=== PATIENT | male | born 1960 | race Caucasian/White ===

== ENCOUNTER → 2021-09-15 | Outpatient (CLI) | payer OTHER ==
[~2021-09-15] MED LIST: MELOXICAM15 MG PO
== END ==
LOC: M.LAB 10:58
PROVIDERS: ATTEND Podiatrist Foot & Ankle Surgery
DX: Z01.812 Encounter for preprocedural laboratory examination (principal); Z20.822 Contact with and (suspected) exposure to COVID-19

== ENCOUNTER 2021-09-16 04:16 | Inpatient (IN) | payer OTHER ==
[~2021-09-16] VITALS: Ht 182.9 cm; Wt 113.4 kg
[2021-09-16 07:20] LABS: HEMATOCRIT 39.1 % (42.0-52.0); HEMOGLOBIN 13.6 gm/dL (14.0-18.0); MCHC 34.9 g/dL (28.0-37.0); MPV 8.5 fl. (7.2-11.1); RBC 4.54 mil/uL (4.50-6.00); WBC 6.9 thou/uL (4.0-11.0)
[2021-09-16 07:24] LABS: CALCIUM 8.4 mg/dL (8.5-10.1); CREATININE 0.9 mg/dL (0.6-1.3); POTASSIUM 3.8 mmol/L (3.5-5.1)
--- NOTE | 2021-09-16 12:14 | NUR ---
PT IS 60 Y/O MALE HOLDING IN PACU FOR MED/SURG BED S/P LEFT TOTAL ANKLE REPLACEMENT. PT BEING CARED FOR BY KEVIN TAVARES. AT BEDSIDE. COMPLETE ADMISSION HX/ASSESSMENT COMPLETED. PT IS DROWSY BUT AXOX4. ON 2L PER NC. PT'S LEFT ANKLE ELEVATED ON MULTIPLE PILLOWS. ICE PACKS APPLIED WELL TO HELP W/ SWELLING/PAIN. PT REPORTS RELIEF FROM LEFT ANKLE PAIN AFTER FENTANYL, TORADOL AND DILAUDID (PER POST OP RECOVERY ORDERS) ADMINISTRATION. PT IS FULL WEIGHT BEARING ON THE RIGHT LEG. NO WEIGHT BEARING ON THE LEFT ANKLE/FOOT. PT WILL FOLLOW UP WITH DR. HOGAN IN THE CLINIC NEXT SUNDAY (APPT ALREADY SCHEDULED). GOALS THIS SHIFT: PAIN MANAGEMENT, ELEVATION, ICE THERAPY, AND MONITOR OXYGENATION STATUS.
[2021-09-16 13:45] VITALS: BP 154/73
--- NOTE | 2021-09-16 14:29 | NUR ---
At 1345 patient transferred from pacu to room 228. patient is awake and alert. Left lower extremity elevated on 3 pillows with ice to lower extremity. pain 1/10. Toes pink and warm.
[2021-09-16 16:00] VITALS: BP 117/67
[2021-09-16 20:00] VITALS: BP 124/61
[2021-09-17 01:22] VITALS: BP 103/52
[2021-09-17 05:45] VITALS: BP 112/60
[2021-09-17 08:48] VITALS: BP 111/64
[2021-09-17 09:44] LABS: ABSOLUTE BASOPHILS 0.1 thou/uL (0.0-0.2); ABSOLUTE EOSINOPHILS 0.1 thou/uL (0.0-0.7); ABSOLUTE LYMPHOCYTES 1.9 thou/uL (0.8-5.3); ABSOLUTE MONOCYTES 0.7 thou/uL (0.0-1.2); BASOPHILS 0.6 %; EOSINOPHILS 0.8 %; HEMATOCRIT 35.7 % (42.0-52.0); HEMOGLOBIN 12.5 gm/dL (14.0-18.0); LYMPHOCYTES 21.4 %; MCH 30.3 pg (26.0-34.0); MCV 86.7 fL (80.0-100.0); MONOCYTES 8.6 %; MPV 8.5 fl. (7.2-11.1); NUCLEATED RBCS 0 /100WBC; PLATELET COUNT* 262 thou/uL (150-400); POLYS 68.6 %; RBC 4.12 mil/uL (4.50-6.00); RDW-CV 13.5 % (10.5-14.5); WBC 8.7 thou/uL (4.0-11.0)
[2021-09-17 09:53] LABS: ALBUMIN 3.1 g/dL (3.4-5.0); CALCIUM 7.7 mg/dL (8.5-10.1); CREATININE 1.1 mg/dL (0.6-1.3); MAGNESIUM 1.9 mg/dL (1.8-2.4); PHOSPHORUS* 2.4 mg/dL (2.5-4.9); POTASSIUM 3.4 mmol/L (3.5-5.1); TOTAL BILIRUBIN 0.8 mg/dL (<0.1-1.0); TOTAL PROTEIN 6.1 g/dL (6.4-8.2)
[2021-09-17] MEDS ORDERED: FLEXERIL PO (09:59)
[2021-09-17] MEDS ORDERED: XARELTO10 MG PO (09:59)
[2021-09-17 11:04] VITALS: BP 111/64
--- NOTE | 2021-09-17 11:45 | NUR ---
PT DC TO HOME WITH SPOUSE AND NURSING STAFF BY WHEELCHAIR AT ABOUT 1130. IV OUT. PT STABLE UPON DC. MEDICATIONS EFAXED BY TO PHARMACY. PERSONAL ITEMS SENT WITH PT. DRESSING C/D/I
== END 2021-09-17 11:50 | disposition home or self-care (01) | DRG 493 ==
LOC: M.SUR → M.ORTHSURG 04:16 → M.SUR 05:24 → M.TBA 05:55 → M.SUR 09:25 → M.2W 13:58 → M.SUR 14:41 → EDSTATUS 14:53 → M.ORTHSURG 14:58 → M.2W 09-17 11:50
PROVIDERS: Anesthesiology; Internal Medicine; ADMIT Internal Medicine; ATTEND Internal Medicine
PROC: 0SU Lower Joints, Supplement (ICD-10-PCS; principal; 2021-09-16)
PROC: 0QBK0ZZ Excision of Left Fibula, Open Approach (ICD-10-PCS; principal; 2021-09-16)
PROC: 0SPG0JZ Removal of Synthetic Substitute from Left Ankle Joint, Open Approach (ICD-10-PCS; principal; 2021-09-16)
PROC: 0L8T0ZZ Division of Left Ankle Tendon, Open Approach (ICD-10-PCS; principal; 2021-09-16)
DX: M19.072 Primary osteoarthritis, left ankle and foot (principal); E44.1 Mild protein-calorie malnutrition; M89.9 Disorder of bone, unspecified; M21.962 Unspecified acquired deformity of left lower leg; M24.072 Loose body in left ankle